=== PATIENT | female | born 1985 | race Caucasian/White ===

== ENCOUNTER 2016-10-22 04:17 | Emergency (ER) | payer OTHER ==
--- NOTE | ~2016-10-22 | ER ---
PATIENT'S NAME: ANH AUSTIN [facility] AGE: 31 Y [address] ROOM: [place] [address] LOCATION: [facility] ADMIT DATE: 10/22/2016 ER/Outpatient Report DISCHARGE DATE: 10/22/2016 FAMILY PHYSICIAN: PHYSICIAN, NO ATTENDING PHYSICIAN: Maury Forte Ms. Anh Austin was seen by Dr. Forte, please refer to his dictation. At shift change, she was being evaluated by [facility]. They did not feel that she required hospitalization, but developed a safety plan. I did have a long discussion with her about this. She has a history of depression. She is in agreement with the safety plan, rest, and fluids. I have given her 2 days off work, and she will return or call [facility] on Monday to establish a followup visit regarding any medication changes. OFELIA ROSS MD CAR/modl /[id number] d: 10/22/16 1344 t: 10/23/16 0722, OUTPATIENT REPORT
--- NOTE | ~2016-10-22 | ER ---
PATIENT'S NAME: KINZA AUSTIN [facility] AGE: 31 Y [address] ROOM: [place] [address] LOCATION: [facility] ADMIT DATE: 10/22/2016 ER/Outpatient Report DISCHARGE DATE: FAMILY PHYSICIAN: PHYSICIAN, NO ATTENDING PHYSICIAN: Maury Forte Time of Arrival: Admission date and time documented on the medical record. Time of Evaluation: I saw the patient at 0435 hours. CHIEF COMPLAINT: Suicidal ideation and depression. HISTORY OF PRESENT ILLNESS: The patient is a 31-year-old female, who presents to the emergency room with complaints of having suicidal ideation. Depressed with some measure of anxiety. No suicidal plan to hurt herself but having suicidal ideation over the past few days. Came in stating that, "I just need to go to [facility] to get some help." No recent cough, cold, flus, fever, chills, or sweats. No chest pain or shortness of breath. No abdominal pain, nausea, vomiting, or diarrhea. No urinary symptoms. No joint or muscle swelling, redness, or pain. No skin eruptions or rash. No fall or trauma. No headache or eyes, ears, nose, throat, neck, or spine pain. No dizziness, lightheadedness, syncope, or near syncope. Does have a history of depression and anxiety. No psychosis. No endocrine problems. No neuro changes. No past history of suicide attempts or suicidal ideation. Is on Wellbutrin for depression and anxiety. She has poor appetite, but no weight loss. Trouble sleeping. HOME MEDICATIONS: See attached medication list. ALLERGIES: NONE. SOCIAL HISTORY: Nonsmoker, nondrinker. SIGNIFICANT PAST MEDICAL HISTORY: Anxiety and depression. OPERATIONS: [place] teeth extraction. REVIEW OF SYSTEMS: All systems reviewed by me are negative with the exception of those discussed in the history of present illness. PATIENT'S NAME: KINZA AUSTIN [facility] AGE: 31 Y [address] ROOM: [place] [address] LOCATION: [facility] ADMIT DATE: 10/22/2016 ER/Outpatient Report DISCHARGE DATE: FAMILY PHYSICIAN: PHYSICIAN, NO ATTENDING PHYSICIAN: Maury Forte PHYSICAL EXAMINATION: VITAL SIGNS: Temperature 98.5, tympanic; pulse 80; respirations 16; blood pressure 111/68; and O2 saturation on room air is 100%. HEAD: Normocephalic. EYES: Extraocular muscles intact. PERRL. Sclerae and conjunctivae clear, nonicteric. EARS: Clear TMs bilaterally. NOSE: Clear. THROAT: Clear. Mucous membranes moist. Teeth, jaw intact. NECK: No nuchal rigidity. No thyromegaly or cervical adenopathy. Full range of motion. No tenderness. SPINE: Negative. LUNGS: Clear. No rales, rhonchi, or wheezes. Good air flow. HEART: Regular. Pulses palpable. ABDOMEN: Soft, flat, nondistended, nontender. Good bowel tones. No organomegaly or abnormal mass palpable. No CVA tenderness. EXTREMITIES: Intact. NEUROVASCULAR: Intact. SKIN: Clear. No skin eruptions or rash. LABORATORY DATA: Urine showed 0 to 2 whites, rare reds, 2 to 5 epithelial cells, few bacteria, 2+ mucus per high-powered field. Urine drug screen was negative. Salicylate serum level was normal, less than 2.8. Acetaminophen serum level was normal, less than 2.0. Medical blood alcohol was less than 0.01. TSH was normal at 2.34. CMS was normal except for a slightly elevated glucose 106 and slightly low potassium at 3.6. White count was 5500, 57 segs, 34 lymphs, 7 monos, 1 eo, 1 baso; hemoglobin was 12.7; hematocrit 39.0; platelet count was 204,000. IMPRESSION: 1. Suicidal ideation. No suicide attempt or plan. 2. Depression. 3. Anxiety. PLAN: Did discuss the patient with [facility]. One of the [facility] psychologists is going to come down to do risk evaluation on the patient. We will proceed on their recommendations. MAURY FORTE MD PATIENT'S NAME: KINZA AUSTIN [facility] AGE: 31 Y [address] ROOM: [place], [place] [address] LOCATION: [facility] ADMIT DATE: 10/22/2016 ER/Outpatient Report DISCHARGE DATE: FAMILY PHYSICIAN: PHYSICIAN, NO ATTENDING PHYSICIAN: Maury Forte SDS/modl /[id number] d: 10/22/1649 t: 10/22/16 181, OUTPATIENT REPORT
[2016-10-22 04:56] LABS: BLOOD URINE 10 /UL (NEGATIVE); GLUCOSE URINE NEGATIVE (NEGATIVE); KETONE URINE 15 mg/dL (NEGATIVE); LEUKOCYTES URINE 25 /UL (NEGATIVE); NITRITE URINE NEGATIVE (NEGATIVE); PROTEIN URINE 15 mg/dL (NEGATIVE); SPEC GRAVITY URINE 1.025 (1.003-1.035); UROBILINOGEN URINE 1 mg/dL (NORMAL)
[2016-10-22 05:00] LABS: BASOPHIL % 0.5 %; EOSINOPHIL % 0.5 %; HEMOGLOBIN 12.7 g/dL (11.0-15.0); IMMATURE GRANULOCYTE % 0.4 %; LYMPHOCYTE # 1.9 K/uL (0.8-4.0); LYMPHOCYTE % 34.4 %; MCH 29.7 pg (27.0-34.0); MCHC 32.6 gm/dL (32.0-36.5); MCV 91.3 fl (83.0-98.0); MONOCYTE # 0.4 K/uL (0.0-1.0); MONOCYTE % 6.9 %; MPV 10.4 fl (9.4-12.4); NEUTROPHIL # (ANC) 3.2 K/uL (1.8-7.8); NEUTROPHIL % 57.3 %; NRBC % 0 /100WBC (0-0.00); PLATELET COUNT 204 K/uL (150-450); RBC 4.27 M/uL (3.50-5.50); WBC 5.5 K/uL (4.0-11.0)
[2016-10-22 05:01] LABS: COLOR URINE YELLOW (YELLOW); TURBIDITY URINE CLEAR (CLEAR)
[2016-10-22 05:17] LABS: BACTERIA URINE FEW (NEGATIVE); MUCUS URINE 2+ (NEGATIVE); RBC URINE RARE #/HPF (NEGATIVE); WBC URINE 0-2 #/HPF (NEGATIVE)
[2016-10-22 05:21] LABS: BARBITURATE NEGATIVE (NEGATIVE); COCAINE NEGATIVE (NEGATIVE); OPIATES NEGATIVE (NEGATIVE)
[2016-10-22 05:21] LABS: ALBUMIN 4.3 gm/dL (3.5-5.0); ALK PHOS 49 IU/L (33-138); ALT 13 IU/L (12-78); ANION GAP 12.6 (10.0-19.0); AST 12 IU/L (10-40); BLOOD UREA NITROGEN 15 mg/dL (6-24); CALCIUM 8.8 mg/dL (8.5-10.5); CHLORIDE 108 mMol/L (96-110); CO2 26 mMol/L (22-32); ESTIMATED GFR (MDRD EQUATION) > 60; POTASSIUM 3.6 mMol/L (3.7-5.1); SODIUM 143 mMol/L (135-145); TOTAL BILIRUBIN 1.3 mg/dL (0.0-1.5); TOTAL PROTEIN 7.4 g/dL (6.0-8.4)
[2016-10-22 05:30] LABS: AMPHETAMINE NEGATIVE (NEGATIVE)
== END 2016-10-22 07:04 | disposition disaster alternative care site (69) ==
LOC: GMED 04:17
PROVIDERS: Emergency Medicine
DX: F32.9 Major depressive disorder, single episode, unspecified (principal); F41.9 Anxiety disorder, unspecified
CPT/HCPCS: G0480